=== PATIENT | male | born 1950 | race African-American/Black ===

== ENCOUNTER 2021-01-15 14:32 | Emergency (ER) | payer BC, OTHER ==
[2021-01-15] MEDS ORDERED: Lidocaine 1% w/Epinephrine 1:100K 20 ML VIAL ONE (15:12)
[2021-01-15] MEDS ORDERED: Boostrix 0.5 ML (Tdap) VIAL ONE (15:22)
== END 2021-01-15 16:32 | disposition home or self-care (01) ==
LOC: MADERS 14:32
DX: S81.812A Laceration without foreign body, left lower leg, initial encounter (principal); I10 Essential (primary) hypertension; E78.5 Hyperlipidemia, unspecified; E78.00 Pure hypercholesterolemia, unspecified; F17.210 Nicotine dependence, cigarettes, uncomplicated; W20.1XXA Struck by object due to collapse of building, initial encounter; Z79.899 Other long term (current) drug therapy; Z23 Encounter for immunization
CPT/HCPCS: 12032; 90471; 90715